=== PATIENT | male | born 1960 | race Caucasian/White ===

== ENCOUNTER 2021-03-07 15:58 | Emergency (ER) | payer BC ==
[2021-03-07] MEDS ORDERED: MELOXICAM15 MG PO (16:41)
[2021-03-07] MEDS ORDERED: CEPHALEXIN500 M1 PO (17:53)
[2021-03-07] MEDS ORDERED: NORCO 325 MG-51 TA1 PO (17:53)
[2021-03-07 18:40] VITALS: BP 155/86
== END 2021-03-07 18:42 | disposition home or self-care (01) ==
LOC: ED 15:58
DX: S68.012A Complete traumatic metacarpophalangeal amputation of left thumb, initial encounter (principal); W31.2XXA Contact with powered woodworking and forming machines, initial encounter
CPT/HCPCS: 90715; J1885